=== PATIENT | female | born 1955 | race Caucasian/White ===

== ENCOUNTER → 2016-07-05 | Outpatient (CLI) | payer BC ==
[~2016-07-05] MED LIST: ALENDRONATE SOD70 MG PO; AMBIEN PO; BENICAR PO; CALTRATE 600 W-1 TAB PO; CELEBREX PO; FLONASE16 GM; KLONOPIN1 MG PO; OYSTER CALCIUM500 MG PO; PRAVACHOL PO; PROZAC40 MG PO; [UNRECOGNIZED DRUG - OTHER]
--- NOTE | ~2016-07-05 | MY6 ---
[facility] A Service of [facility] & [facility] RADIOLOGY TEXT RESULTS PATIENT: PRATIMA THOMAS LOCATION: [facility] : 53 UNIT #: [id number] AGE: [address]: CHAITANYA SAENZ MD (INT MED) SEX: F ORDER DR: [id number] [facility] [address] [place], [place] [address] [id number] O MR#: [id number] Acc #: [id number] NAME: PRATIMA THOMAS. : 1955 SEX: F STUDY DATE/TIME: 07/05/2016 11:31 UNIT: [facility] ROOM: STUDY DESCRIPTION: MY Mammogram Dx Dig Keith Attending Physician: Chaitanya Saenz M.D. Referring Physician: Chaitanya Saenz M.D. Ordering Physician: Chaitanya Saenz M.D. Primary Care Physician: Chaitanya Saenz M.D. MEDICAL IMAGING REPORT This report is preliminary unless electronic signature is present EXAM Diagnostic mammogram, 07/05 INDICATION History of right side breast cancer status post lumpectomy. No current complaints. FINDINGS Digital CC and MLO views of both breasts were obtained in addition to a right true lateral view. Study is reviewed with an FDA-approved CAD device. Comparison is made with 03/28/2014 and 05/19/2015. Breast parenchyma shows scattered fibroglandular densities. No new masses or suspicious microcalcifications are seen. Lumpectomy bed on the right appears stable from the more recent exam. There is a small stable benign nodule in the deep lower left breast. Findings were discussed with the patient at the time of her exam today. IMPRESSION Benign mammogram. Followup in 1 year recommended. Patients over the age of 40 are entered into a reminder system with target due date for the next mammogram. A result letter will also be sent to the patient. BIRADS: 2 Benign Finding Dictated by... Eren Pandey Jr., M.D. THIS IS AN ELECTRONICALLY VERIFIED REPORT Eren Pandey Jr., M.D. at 07/05/2016 4:47 PM [facility] A Service of [facility] & [facility] RADIOLOGY TEXT RESULTS PATIENT: PRATIMA THOMAS LOCATION: [facility] : 53 UNIT #: [id number] AGE: [address]: CHAITANYA SAENZ MD (INT MED) SEX: F ORDER DR: AUTUMN/michelle TD: 07/05/2016 12:35 JOB #: [id number] MEDICAL IMAGING REPORT Page 1 of 1 COPY
== END | disposition home or self-care (01) ==
LOC: CMAM 11:06
DX: N64.4 Mastodynia (principal); Z85.3 Personal history of malignant neoplasm of breast; Z98.890 Other specified postprocedural states
CPT/HCPCS: G0204